=== PATIENT | female | born 1985 | race Caucasian/White ===

== ENCOUNTER 2024-10-10 10:22 | Emergency (ER) | payer MEDICAID ==
[~2024-10-10] VITALS: Ht 172.7 cm; Wt 64.0 kg
[2024-10-10 10:42] VITALS: BP 109/66; TEMP 98.4; O2SAT 97
[2024-10-10] MEDS ORDERED: BACI500P4 TP (11:18)
== END 2024-10-10 11:33 | disposition home or self-care (01) ==
LOC: ER 10:22
DX: K13.79 Other lesions of oral mucosa (principal)

== ENCOUNTER 2024-11-11 09:15 | Emergency (ER) | payer MEDICAID ==
[~2024-11-11] VITALS: Ht 172.7 cm; Wt 59.9 kg
[~2024-11-11 09:15] MED LIST: BACI500P4 TP
[2024-11-11 09:22] VITALS: BP 117/73; TEMP 98.5; O2SAT 98
[2024-11-11 09:45] LABS: PREGNANCY TEST URINE QUAL NEGATIVE (NEGATIVE)
[2024-11-11 09:53] LABS: APPEARANCE,URINE TURBID (CLEAR); COLOR,URINE RED (YELLOW)
[2024-11-11 10:00] LABS: BACTERIA,URINE Many /HPF (None Seen); RBC,URINE 81-100 /HPF (0-2); WBC,URINE TOO NUMEROUS TO COUN /HPF (0-3)
[2024-11-11] MEDS ORDERED: SULF1TAB48 PO (10:00)
[2024-11-11 10:01] LABS: SQUAMOUS EPITHELIAL CELL,UR Moderate /HPF (None Seen)
[2024-11-11 10:03] LABS: HYALINE CASTS, URINE Few /LPF (None Seen)
== END 2024-11-11 10:03 | disposition home or self-care (01) ==
LOC: ER 09:19
DX: N39.0 Urinary tract infection, site not specified (principal); F17.200 Nicotine dependence, unspecified, uncomplicated; Z87.442 Personal history of urinary calculi
CPT/HCPCS: 81001; 84703-TC